=== PATIENT | female | born 1990 | race Caucasian/White ===

== ENCOUNTER 2017-02-12 15:28 | Emergency (ER) | payer BC ==
[~2017-02-12] VITALS: Ht 160 cm; Wt 123.2 kg
[~2017-02-12 15:28] MED LIST: Motrin PO; Percocet 5/325,Endoc PO; Prefera-OB Plus DHA PO
[2017-02-12] MEDS ORDERED: NAPROSYN500 MG PO (16:05)
[2017-02-12 16:23] VITALS: BP 145/102
== END 2017-02-12 16:23 | disposition home or self-care (01) ==
LOC: EME 15:28
DX: S86.912A Strain of unspecified muscle(s) and tendon(s) at lower leg level, left leg, initial encounter (principal); X50.9XXA Other and unspecified overexertion or strenuous movements or postures, initial encounter; Y93.02 Activity, running; Z87.891 Personal history of nicotine dependence
CPT/HCPCS: 99281; 99283